=== PATIENT | female | born 1940 | race Caucasian/White ===

== ENCOUNTER 2022-04-25 07:57 | Inpatient (IN) | payer OTHER ==
--- OUTSIDE RECORDS SUMMARY | 2022-04-25 08:00 | XMS REPORT | Continuity of Care Document ---
:[address] [facility] t Address [address] [place] [address] Care Team Providers Name Role Phone Oswaldo Bettencourt MD. Primary Care Physician Oswaldo Bettencourt Attending Clinician Oswaldo Bettencourt Attending Clinician Payers Payer Name Policy Type Policy Number Effective Date Expiration Date S katarzyna [employer] MEDICARE [id number] 2018 2024 O 00:00:00 00:00:00 Problems Condition Condition Condition Status Onset Resolution Last Treating Co mments Source Name Details Category Date Date Treatment Clinician Date R91.1 - R91.1 - Diagnosis Active 2018-04-19 Memoria SOLITARY SOLITARY 03-23 14:22:00 l PULMONARY PULMONARY 00:01: Herm beth NODULE NODULE 00 Active 03/23/2018 JOEL Cohen N13.30 - N13.30 - Diagnosis Active 2017-12-26 Memoria UNSPECIFIE UNSPECIFIE 12-20 09:36:00 l D D 00:01: Noel HYDRONEPHR HYDRONEPHR 00 OSIS OSIS Active 12/20/2017 JOEL Barreto Allergies, Adverse Reactions, Alerts Allergy Allergy Status Severity Reaction(s) Onset Inactive Treating Comm ents Source Name Type Date Date Clinician Iodine Propensi Active Rash 2018-08 Methodi ty to 0-09 st adverse 00:00: Hospita reaction 00 l s to drug Penicill Propensi Active Rash 2018-08 Method i ins ty to 0-09 st adverse 00:00: Hospita reaction 00 l s to drug Vancomyc Propensi Active Rash 2018-08 Method i in ty to 0-09 st adverse 00:00: Hospita reaction 00 l s to drug penicill penicill Active Memori a in in l Moro contrast contrast Active Moderate Ruy johny media media l (iodine- (iodine- Tim n based) based) Social History Social Habit Start Date Stop Date Quantity Comments Source History [facility] History [facility] Drinks Tobacco use and 2019-06-05 2019-06-05 Smokeless tobacco [facility] exposure 00:00:00 00:00:00 non-user Hospital Alcohol intake 2019-06-05 2019-06-05 Lifetime [facility] 00:00:00 00:00:00 non-drinker Hospital (finding) History [facility] 2019-06-05 2019-06-05 1 [facility] Frequency 00:00:00 00:00:00 Hospita l Sex Ass[birth year] At [birth year] [facility] 00:00:00 00:00[facility]00 Hospital Smoking Status Start Date Stop Date Source Tobacco smoking consumption unknown [facility] Never smoked tobacco [facility] Medications Ordered Filled Start Stop Current Ordering Indication Dosage Frequency Signature Comments Components Source Medication Medication Date Date Medication? Clinician (SIG) Name Name lisinopril- Yes TAKE 2 Meth collette hydrochloro 9-[address] thiazide 00:00: MOUTH Hospita (PRINZIDE) 00 DAILY FOR l 20-12.5 mg HIGH BLOOD per tablet PRESSURE amLODIPine Yes 10mg QD Take 10 mg M ethodi (NORVASC) 8-[address] 10 mg 00:00: daily. Hospita tablet 00 l Procedures Procedure Date / Time Performed Performing Clinician Sourc e CHG DEXA,BONE DENSITY, 1 + SITE, 2021-05-27 17:36:12 [facility] Bettencourt [facility] CHG DEXA,BONE DENSITY, 1 + SITE, 2021-05-27 17:36:12 Vlad [facility]tencourt [facility] Encounters Start End Encounter Admission Attending Care Care Encounter Source Date/Time Date/Time Type Type Clinicians Facility Department ID 2021-12-21 Outpatient [facility] [id number] [place] 07:38:02 [id number] Health 2021-05-27 2021-05-27 EXT [facility] OP Sg, EXT MSRDP [id number] [place] 00:00:00 00:00:00 Oswaldo D LOCATION [id number] H ealth [id number] 2021-05-27 2021-05-27 EXT M[facility] OP Sg, EXT MSRDP [id number] [place] 00:00:00 00:00:00 Oswaldo D LOCATION [id number] H ealth [id number] 2018-01-10 2018-01-11 Outpt Diag nullFlavo [facility] [id number] Memoria 15:41:00 04:59:00 Services r Outpatient 04 l Moe dior [facility] 2018-01-10 2018-01-11 Outpt Diag nullFlavo [facility] [id number] Memoria 15:41:00 04:59:00 Services r Outpatient 04 l Imaging James Dumont barby [facility] 2018-01-10 2018-01-10 Outpatient Sg, MH35 MH35 [id number] 10:41:00 23:59:00 Oswaldo 04 Da-[facility] 2018-01-10 2018-01-10 Outpatient Sg, MH35 MH35 [id number] 10:41:00 23:59:00 Oswaldo 04 Da-Ye 2017-12-26 2017-12-27 Outpt Diag nullFlavo [facility] [id number] Memoria 14:27:00 04:59:00 Services r Outpatient 03 l Imaging James Dumont barby [facility] 2017-12-26 2017-12-27 Outpt Diag nullFlavo [facility] [id number] Memoria 14:27:00 04:59:00 Services r Outpatient 03 l Moe Dumont barby [facility] 2017-12-26 2017-12-26 Outpatient Sg, MH35 [id number] 09:27:00 23:59:00 Oswaldo 03 Da-Ye 2017-12-26 2017-12-26 Outpatient Sg, MH35 MH35 [id number] 09:27:00 23:59:00 Oswaldo 03 Da-Ye 2017-01-24 2017-01-25 Outpt Diag nullFlavo [facility] [id number] Memoria 19:23:00 04:59:00 Services r Outpatient 00 l Imaging - Tim n [facility] 2017-01-24 2017-01-25 Outpt Diag nullFlavo [facility] [id number] Memoria 19:23:00 04:59:00 Services r Outpatient 00 l Imaging - Tim n [facility] 2017-01-24 2017-01-25 Outpt Diag nullFlavo [facility] [id number] Memoria 15:52:00 04:59:00 Services r Outpatient 01 l Imaging - Tim n [facility] 2017-01-24 2017-01-25 Outpt Diag nullFlavo [facility] [id number] Memoria 15:52:00 04:59:00 Services r Outpatient 01 l Imaging - Tim n [facility] 2017-01-24 2017-01-24 Outpatient Sg, 35 [id number] 14:23:00 23:59:00 Oswaldo 00 Da-[facility] 2017-01-24 2017-01-24 Outpatient Sg, 35 35 [id number] 14:23:00 23:59:00 Oswaldo 00 Da-Ye 2017-01-24 2017-01-24 Outpatient Sg, [id number] 10:52:00 23:59:00 Oswaldo [id number] 01 Da-Yeh [id number] 2017-01-24 2017-01-24 Outpatient Sg, [id number]. [id number] 10:52:00 23:59:00 Oswaldo [id number] 01 Da-Yeh [id number] 5.90 Results This patient has no known results.
[2022-04-25 08:23] LABS: Absolute Lymphocytes (CBC) 0.7 K/uL (0.7-4.9); Hematocrit 41.4 % (36.0-45.0); Lymphocytes % 4.6 % (15.3-44.8); MCV 64.1 fL (80-100); MPV 8.6 fL (7.6-11.3); RBC Red Blood Cell Count 6.46 M/uL (3.86-4.86)
[2022-04-25] MEDS ORDERED: NA CHLORIDE 0.9% 500 ML ONE ×2 (08:23→09:55)
[2022-04-25] MEDS ORDERED: MORPHINE 4 MG/ML SYR ONE (08:23)
[2022-04-25] MEDS ORDERED: ONDANSETRON 4 MG/2 ML VIAL ONE (08:23)
[2022-04-25 08:51] LABS: Protime INR 1.07
[2022-04-25 09:01] LABS: Platelet Estimate ADEQ; Potassium 2.6 mmol/L (3.5-5.1); White Blood Cell Scan OK (OK)
[2022-04-25 09:02] LABS: Anisocytosis 1+; Blood Morphology Comment NOTED (NOT SEEN); Hypochromasia 1+
--- NOTE | 2022-04-25 09:22 | RAD REPORT ---
EXAM DESCRIPTION: CT - Head C Spine Cap Lucie Con - 04/25/2022 9:12 am CLINICAL HISTORY: Trauma, head and neck injury. Chest, abdomen and pelvis pain. fall in bathtub, pain all over, head injury COMPARISON: No comparisons TECHNIQUE: CT head without contrast. CT cervical spine without contrast with coronal and sagittal reformatted images. CT chest, abdomen and pelvis with coronal and sagittal reformatted images of the spine. All CT scans are performed using dose optimization technique as appropriate and may include automated exposure control or mA/KV adjustment according to patient size. FINDINGS: CT HEAD WITHOUT CONTRAST: No intracranial hemorrhage, hydrocephalus or extra-axial fluid collection. No acute large vascular te rritory infarct. 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 Right frontotem poral encephalomalacia. The paranasal sinuses and mastoids are clear. The calvarium is intact. CT CERVICAL SPINE WITHOUT CONTRAST: No fracture or subluxation. The prevertebral soft tissues are normal in thickness.Mild levoconvex curvature of the cervical spine . Minimal cervical spondylosis. CT CHEST, ABDOMEN, PELVIS: Thorax: Chest Wall: No abnormal mass Lungs: No acute abnormality. Pleura: No effusions or pneumothorax. Margie/Mediastinum: No lymphadenopathy. Small hiatal hernia. Aorta/Pulmonary Arteries: Unremarkable Heart: Normal size. Abdomen/Pelvis: Liver: No acute abnormality or suspicious lesions. Biliary: Cholecystectomy. Stomach: No significant focal abnormality. Duodenum: No significant focal abnormality. Pancreas: No significant abnormality. Spleen: No significant abnormality. Adrenal: No suspicious lesions. 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 No renal calculi. Retroperitoneum: No retroperitoneal adenopathy. Vascular: No aneurysm. Bowel: Moderate rectal stool burden. Perirectal edema noted.. Normal appendix. Peritoneum: No ascites or free air. Bladder: Grossly unremarkable. Reproductive: No adnexal masses. Bones: No acute fracture. Other: n/a IMPRESSION: 1. Negative for acute traumatic findings. 2. Moderate rectal stool burden with wall thickening and perirectal edema that may represent fecal im paction with stercoral colitis.
--- NOTE | 2022-04-25 09:44 | RAD REPORT ---
EXAM DESCRIPTION: RAD - Knee Right 3 View - 04/25/2022 9:37 am CLINICAL HISTORY: PAIN COMPARISON: No comparisons FINDINGS/IMPRESSION: No acute fracture. No malalignment. Mild patellofemoral compartment spurring.
--- NOTE | 2022-04-25 09:46 | RAD REPORT ---
EXAM DESCRIPTION: RAD - Femur Right - 04/25/2022 9:36 am CLINICAL HISTORY: PAIN COMPARISON: No comparisons FINDINGS/IMPRESSION: No acute fracture. No malalignment. Mild right acetabular degenerative changes.
--- NOTE | 2022-04-25 09:46 | RAD REPORT ---
EXAM DESCRIPTION: RAD - Humerus Right - 04/25/2022 9:36 am CLINICAL HISTORY: PAIN COMPARISON: No comparisons FINDINGS/IMPRESSION: No acute fracture. No malalignment. Glenohumeral joint degenerative changes. Mi ld right AC joint degenerative changes and subacromial spurring. Ossific density adjacent to the grea ter tuberosity may reflect calcific tendinitis.
--- NOTE | 2022-04-25 09:46 | RAD REPORT ---
EXAM DESCRIPTION: RAD - Shoulder Left 2 View - 04/25/2022 9:36 am CLINICAL HISTORY: PAIN COMPARISON: No comparisons FINDINGS/IMPRESSION: No acute fracture. No malalignment. Left glenohumeral and AC joint degenerative changes.
[2022-04-25] MEDS ORDERED: KCL 20 MEQ/100 mL IVPB 100 ML IV ONE (09:55)
--- NOTE | 2022-04-25 10:00 | ER ---
Nurse's Notes [facility] Name: Mariposa Devine Age: 81 yrs Sex: Female : 1940 Arrival Date: 04/25/2022 Time: 07:58 Bed 8 Private MD: Diagnosis: Fecal impaction-With stercoral colitis;Rhabdomyolysis;Muscle weakness (generalized);Hypokalemia Presentation: 04/25 08:03 Chief complaint: EMS states: Fell in bathtub last night at 2100, found by daughter this jl7 morning, bruising to right upper arm, right hip, bilateral knees, left posterior ribs, did not hit head, denies pain to back. Pt reports pressure to rectum. Care prior to arrival: Medication(s) given: Normal saline infusion, 200 mL IV initiated. 20 GA, in the right antecubital area. Mechanism of Injury: Fall from standing position. Trauma event details: Injury occurred in the [facility], Injury occurred: at home. Injury occurred: April 24, 2022 Injury occurred at: 21:00. 08:03 Acuity: ARIELA 2 jl7 08:03 Method Of Arrival: EMS: [facility] jl7 08:09 Coronavirus screen: Vaccine status: Patient reports receiving the 2nd dose of the covid jl7 vaccine. At this time, the client does not indicate any symptoms associated with coronavirus-19. Ebola Screen: No symptoms or risks identified at this time. Initial Sepsis Screen: Does the patient meet any 2 criteria? No. Patient's initial sepsis screen is negative. Does the patient have a suspected source of infection? No. Patient's initial sepsis screen is negative. Risk Assessment: Do you want to hurt yourself or someone else? Patient reports no desire to harm self or others. Onset of symptoms was April 24, 2022 at 21:00. Trauma Activation: Alert Physician: ED Physician; Name: Nicky; Notified At: 08:04; Arrived At: 08:04 Physician: General Surgeon; Name: ; Notified At: 08:04; Arrived At: Physician: Radiology; Name: Nia; Notified At: 08:04; Arrived At: 08:06 Physician: Respiratory; Name: ; Notified At: 08:04; Arrived At: Physician: Lab; Name: ; Notified At: 08:04; Arrived At: Historical: - Allergies: 08:10 PENICILLINS; jl7 08:10 Vancomycin; jl7 - Home Meds: 08:10 Lisinopril Oral [Active]; lovastatin 10 mg Oral tab [Active]; jl7 - PMHx: 08:10 Hypertensive disorder; Hypercholesterolemia; jl7 - Immunization history:: Client reports receiving the 2nd dose of the Covid vaccine. - Social history:: Smoking status: Patient denies any tobacco usage or history of. - Immunization history: Last tetanus immunization: unknown. - Family history:: not pertinent. - Hospitalizations: : No recent hospitalization is reported. Screenin:03 Abuse screen: Denies threats or abuse. Denies injuries from another. Tuberculosis jl7 screening: No symptoms or risk factors identified. 11:00 Nutritional screening: No deficits noted. Fall Risk IV access (20 points). Total Delaney jl7 Fall Scale indicates No Risk (0-24 pts). Primary Survey: 08:03 NO uncontrolled hemorrhage observed. A: The client is alert. Airway: patent. jl7 Breathing/Chest: Respiratory effort: spontaneous, unlabored, Respiratory pattern: regular, Chest inspection: symmetrical rise and fall of the chest. Circulation: Hemorrhage: No external hemorrhage noted. Pulses: palpable right radial artery and left radial artery. Skin color: pink, Skin temperature: warm. Disability Client is alert. Exposure/Environment: All clothing and personal items were removed. Forensic evidence collection is not deemed to be indicated at this time. Items placed in patient belonging bag. There is no evidence of uncontrolled external bleeding. Obvious injury(ies) are noted at this time: bruising to Right upper arm and hip, bilateral knees, and left posterior ribs. 08:30 Reassessment Alertness and Airway: Awake and alert. The airway is patent. Breathing: jl7 Spontaneous respiratory effort, equal unlabored respirations, breath sounds clear bilaterally, regular pattern with symmetrical chest rise and fall. Circulation: No external hemorrhage noted. Regular and strong central pulse, skin warm/dry/normal color. Disability: Alert. Assessment: 08:00 General: Appears in no apparent distress. uncomfortable, Behavior is calm, cooperative, jl7 appropriate for age. Pain: Complains of pain in left mid back and right mid back Pain currently is 10 out of 10 on a pain scale. Neuro: Level of Consciousness is awake, alert, obeys commands, Oriented to person, place, time, situation. Cardiovascular: Patient's skin is warm and dry. Respiratory: Airway is patent Respiratory effort is even, unlabored, Respiratory pattern is regular, symmetrical. Derm: Skin is pink, warm \T\ dry. Bruising that is bright red, dark purple, on left flank, right arm and right hip, bilateral knees. Musculoskeletal: Range of motion: intact in all extremities. 09:00 Reassessment: Patient appears in no apparent distress at this time. Patient and/or jl7 family updated on plan of care and expected duration. Pain level reassessed. Patient is alert, oriented x 3, equal unlabored respirations, skin warm/dry/pink. Patient states feeling better. 10:00 Reassessment: Patient appears in no apparent distress at this time. No changes from 7 previously documented assessment. Patient and/or family updated on plan of care and expected duration. Pain level reassessed. Patient is alert, oriented x 3, equal unlabored respirations, skin warm/dry/pink. 11:00 Reassessment: Patient appears in no apparent distress at this time. No changes from 7 previously documented assessment. Patient and/or family updated on plan of care and expected duration. Pain level reassessed. Patient is alert, oriented x 3, equal unlabored respirations, skin warm/dry/pink. 18:00 Reassessment: Angela, daughter, [phone]. [phone] Vital Signs: 08:03 BP 133 / 83; Pulse 89; Resp 20; Temp 97.5; Pulse Ox 99% on R/A; Weight 63.5 kg; Height jl7 5 ft. 2 in. (157.48 cm); Pain 1010; 08:45 BP 133 / 74; Pulse 103; Resp 15; Pulse Ox 98% ; jl7 09:30 BP 130 / 71; Pulse 76; Resp 15; Pulse Ox 96% ; jl7 10:15 BP 131 / 84; Pulse 86; Resp 15; Pulse Ox 98% ; jl7 11:00 BP 134 / 85; Pulse 86; Resp 15; Pulse Ox 98% ; jl7 11:30 BP 124 / 73; Pulse 83; Resp 18; Pulse Ox 98% ; jl7 12:15 BP 121 / 69; Pulse 80; Resp 15; Pulse Ox 97% ; jl7 13:00 BP 122 / 79; Pulse 89; Resp 14; Pulse Ox 98% ; jl7 13:45 BP 120 / 77; Pulse 82; Resp 15; Pulse Ox 98% ; jl7 08:03 Body Mass Index 25.61 (63.50 kg, 157.48 cm) jl7 Rose Coma Score: 08:03 Eye Response: spontaneous(4). Verbal Response: oriented(5). Motor Response: obeys jl7 commands(6). Total: 15. 08:45 Eye Response: spontaneous(4). Verbal Response: oriented(5). Motor Response: obeys jl7 commands(6). Total: 15. 09:30 Eye Response: spontaneous(4). Verbal Response: oriented(5). Motor Response: obeys jl7 commands(6). Total: 15. 10:15 Eye Response: spontaneous(4). Verbal Response: oriented(5). Motor Response: obeys jl7 commands(6). Total: 15. 11:00 Eye Response: spontaneous(4). Verbal Response: oriented(5). Motor Response: obeys jl7 commands(6). Total: 15. 11:30 Eye Response: spontaneous(4). Verbal Response: oriented(5). Motor Response: obeys jl7 commands(6). Total: 15. 12:15 Eye Response: spontaneous(4). Verbal Response: oriented(5). Motor Response: obeys jl7 commands(6). Total: 15. 13:00 Eye Response: spontaneous(4). Verbal Response: oriented(5). Motor Response: obeys jl7 commands(6). Total: 15. 13:45 Eye Response: spontaneous(4). Verbal Response: oriented(5). Motor Response: obeys jl7 commands(6). Total: 15. Trauma Score (Adult): 08:03 Eye Response: spontaneous(1); Verbal Response: oriented(1); Motor Response: obeys jl7 commands(2); Systolic BP: > 89 mm Hg(4); Respiratory Rate: 10 to 29 per min(4); Rose Score: 15; Trauma Score: 12 ED Course: 07:58 Patient arrived in ED. rn 07:58 Hunter Saunders MD is Attending Physician. rn 08:03 Kadeem Oneal, RN is Primary Nurse. jl7 08:03 Patient has correct armband on for positive identification. Placed in gown. Bed in low jl7 position. Call light in reach. Side rails up X2. 08:03 Patient maintains SpO2 saturation greater than 95% on room air. Thermoregulation: warm jl7 blanket given to patient. 08:07 Triage completed. jl7 08:10 Arm band placed on right wrist. jl7 08:15 Basic Metabolic Panel Sent. kc6 08:15 CBC with Diff Sent. kc6 08:15 Ptt, Activated Sent. kc6 08:15 Protime (+inr) Sent. kc6 08:15 CK Sent. kc6 08:15 Maintain EMS IV. Dressing intact. Good blood return noted. Site clean \T\ dry. Gauge \T\ jl 7 site: 20 Right AC. 08:16 EKG done, by ED staff, reviewed by Hunter Saunders MD. mb7 08:20 Door closed. Noise minimized. Warm blanket given. Client placed on continuous cardiac mb7 and pulse oximetry monitoring. NIBP monitoring applied. laboratory monitor on. 09:14 Head C Spine Cap Wo Con In Process Unspecified. EDMS 09:37 XRAY Humerus RIGHT In Process Unspecified. EDMS 09:37 XRAY Shoulder LEFT 2 view In Process Unspecified. EDMS 09:37 XRAY Femur RIGHT In Process Unspecified. EDMS 09:37 XRAY Knee RIGHT 3 view In Process Unspecified. EDMS 09:37 XRAY Knee LEFT 3 view In Process Unspecified. EDMS 09:59 Parker Tijerina MD is Hospitalizing Provider. rn 10:15 Inserted saline lock: 22 gauge in left hand, using aseptic technique. jl7 10:20 Chan cath inserted, using sterile technique, 16 Fr., by wi, balloon inflated, to jl7 gravity drainage, urine specimen collected. returned cloudy urine. Patient tolerated well. 10:20 No provider procedures requiring assistance completed. jl7 10:32 Patient admitted, IV remains in place. intact, No redness/swelling at site. jl7 19:11 Primary Nurse role handed off by Kadeem Oneal, RN mw2 Administered Medications: 08:20 Drug: NS 0.9% 500 ml Route: IV; Rate: bolus; Site: right antecubital; jl7 09:20 Follow up: Response: No adverse reaction; IV Status: Completed infusion; IV Intake: jl7 500ml 08:21 Drug: Zofran (Ondansetron) 4 mg Route: IVP; Site: right antecubital; jl7 08:50 Follow up: Response: No adverse reaction jl7 08:23 Drug: morphine 4 mg Route: IVP; Infused Over: 4 mins; Site: right antecubital; jl7 08:50 Follow up: Response: No adverse reaction; Pain is decreased jl7 10:30 Drug: Potassium Chloride 20 mEq Route: IV; Rate: calculated rate; Site: left hand; jl7 12:30 Follow up: Response: No adverse reaction; IV Status: Completed infusion jl7 10:30 Drug: Fleet Enema (sodium phosphate) 133 ml Route: WA; jl7 19:16 Follow up: Response: No adverse reaction jl7 10:30 Drug: NS 0.9% 500 ml Route: IV; Rate: bolus; Site: left hand; jl7 12:00 Follow up: Response: No adverse reaction; IV Status: Completed infusion; IV Intake: jl7 500ml Medication: 11:00 VIS not applicable for this client. jl7 Intake: 09:20 IV: 500ml; Total: 500ml. jl7 12:00 IV: 500ml; Total: 1000ml. jl7 14:00 PO: 50ml (Water); IV: 1000ml (IV Fluid); Total: 2050ml. jl7 Output: 14:00 Urine: 1000ml; Total: 1000ml. jl7 Outcome: 09:59 Decision to Hospitalize by Provider. rn 14:00 Admitted to ER Hold. Please see [facility] for further documentation. jl7 14:00 Condition: stable 14:00 Discharge instructions given to patient, family, Instructed on the need for admit, Demonstrated understanding of instructions. 14:00 Patient's length of stay was not longer than 2 hours. jl7 21:11 Patient left the ED. ella Signatures: Dispatcher [employer] EDMS Nica Stock RN RN kl Nieto, Roman, MD MD rn Leal, Jahala, RN RN jl7 Quirino Sutton 2 Alka Don 7 Ibeth Driscoll kc6 Corrections: (The following items were deleted from the chart) 10:32 08:15 Inserted saline lock: 20 gauge in right antecubital area, using aseptic jl7 technique. Blood collected. [facility] 11: 11: General: Appears in no apparent distress. uncomfortable, Behavior is calm, jl7 cooperative, appropriate for age, [facility] 11: 11:01 Pain: Complains of pain in left mid back and right mid back Pain currently is 10 jl7 out of 10 on a pain scale. [facility] : 11: Neuro: Level of Consciousness is awake, alert, obeys commands, Oriented to [facility] person, place, time, situation, [facility] 11: Cardiovascular: Patient's skin is warm and dry. [place] [id number] : 11:01 Respiratory: Airway is patent Respiratory effort is even, unlabored, Respiratory [facility] pattern is regular, symmetrical, [facility] : 11: Derm: Skin is pink, warm \T\ dry. Bruising that is bright red, dark purple, on left jl7 flank, right arm and right hip, bilateral knees [facility] 11: 11:01 Musculoskeletal: Range of motion: intact in all extremities, [facility] jl7
--- NOTE | 2022-04-25 10:00 | EDPHYS ---
Physician Documentation [facility] Name: Mariposa Devine Age: 81 yrs Sex: Female : 1940 Arrival Date: 04/25/2022 Time: 07:58 Bed 8 Private MD: ED Physician Hunter Saunders HPI: 04/25 08:32 This 81 yrs old Female presents to ER via EMS with complaints of Fall Injury. rn 08:32 Details of fall: The patient fell from an upright position. Onset: The symptoms/episode rn began/occurred last night. Associated injuries: The patient sustained injury to the head, upper back injury. Severity of symptoms: At their worst the symptoms were moderate, in the emergency department the symptoms are unchanged. The patient has not experienced similar symptoms in the past. The patient has not recently seen a physician. Pt reports fell in shower last night, found this AM, unable to get up on her own after fall. Reports left head pain, right arm pain, left shoulder pain, mid back pain, pain to both knees. EMS found her in "weird position", with extremities bent and noted mild cyanosis to lower extremities that improved after proper positioning. Pt denies recent illness. . Historical: - Allergies: 08:10 PENICILLINS; jl7 08:10 Vancomycin; jl7 - Home Meds: 08:10 Lisinopril Oral [Active]; lovastatin 10 mg Oral tab [Active]; jl7 - PMHx: 08:10 Hypertensive disorder; Hypercholesterolemia; jl7 - Immunization history:: Client reports receiving the 2nd dose of the Covid vaccine. - Social history:: Smoking status: Patient denies any tobacco usage or history of. - Immunization history: Last tetanus immunization: unknown. - Family history:: not pertinent. - Hospitalizations: : No recent hospitalization is reported. ROS: 08:32 Constitutional: Negative for fever, chills, and weight loss, Eyes: Negative for injury, rn pain, redness, and discharge, Neck: Negative for injury, pain, and swelling, Cardiovascular: Negative for chest pain, palpitations, and edema, Respiratory: Negative for shortness of breath, cough, wheezing, and pleuritic chest pain, Abdomen/GI: Negative for abdominal pain, nausea, vomiting, diarrhea, and constipation, Back: + back pain MS/Extremity: + pain to right arm, left shoulder, both knees Skin: Negative for injury, rash, and discoloration, Neuro: Negative for headache, numbness, tingling, and seizure. Exam: 08:26 ECG was reviewed by the Attending Physician. rn 08:32 Constitutional: This is a well developed, well nourished patient who is awake, alert, rn and in no acute distress. Head/Face: Normocephalic, atraumatic. Eyes: Periorbital areas with no swelling, redness, or edema. ENT: dry MM, no oral trauma noted Neck: Trachea midline, no midline tenderness. No Meningismus. Chest/axilla: Normal chest wall appearance and motion. Nontender with no deformity. Cardiovascular: Regular rate and rhythm. No pulse deficits. Respiratory: No increased work of breathing, no retractions or nasal flaring. Abdomen/GI: Soft, non-tender Back: + contusino and ecchymosis mid back Skin: Warm, dry MS/ Extremity: Pulses equal, no cyanosis. Painful ROM RLE at knee and resists active ROM on that leg. + contusion and ecchymosis right proximal humerus. + mild contusion and painful ROM left shoulder. Neuro: Awake and alert, GCS 15, slow to respond, 3+/5 strength throughout with tremors but equal. Sensation grossly intact. Vital Signs: 08:03 BP 133 / 83; Pulse 89; Resp 20; Temp 97.5; Pulse Ox 99% on R/A; Weight 63.5 kg; Height jl7 5 ft. 2 in. (157.48 cm); Pain 10/10; 08:45 BP 133 / 74; Pulse 103; Resp 15; Pulse Ox 98% ; jl7 09:30 BP 130 / 71; Pulse 76; Resp 15; Pulse Ox 96% ; jl7 10:15 BP 131 / 84; Pulse 86; Resp 15; Pulse Ox 98% ; jl7 11:00 BP 134 / 85; Pulse 86; Resp 15; Pulse Ox 98% ; jl7 11:30 BP 124 / 73; Pulse 83; Resp 18; Pulse Ox 98% ; jl7 12:15 BP 121 / 69; Pulse 80; Resp 15; Pulse Ox 97% ; jl7 13:00 BP 122 / 79; Pulse 89; Resp 14; Pulse Ox 98% ; jl7 13:45 BP 120 / 77; Pulse 82; Resp 15; Pulse Ox 98% ; jl7 08:03 Body Mass Index 25.61 (63.50 kg, 157.48 cm) jl7 Rose Coma Score: 08:03 Eye Response: spontaneous(4). Verbal Response: oriented(5). Motor Response: obeys jl7 commands(6). Total: 15. 08:45 Eye Response: spontaneous(4). Verbal Response: oriented(5). Motor Response: obeys jl7 commands(6). Total: 15. 09:30 Eye Response: spontaneous(4). Verbal Response: oriented(5). Motor Response: obeys jl7 commands(6). Total: 15. 10:15 Eye Response: spontaneous(4). Verbal Response: oriented(5). Motor Response: obeys jl7 commands(6). Total: 15. 11:00 Eye Response: spontaneous(4). Verbal Response: oriented(5). Motor Response: obeys jl7 commands(6). Total: 15. 11:30 Eye Response: spontaneous(4). Verbal Response: oriented(5). Motor Response: obeys jl7 commands(6). Total: 15. 12:15 Eye Response: spontaneous(4). Verbal Response: oriented(5). Motor Response: obeys jl7 commands(6). Total: 15. 13:00 Eye Response: spontaneous(4). Verbal Response: oriented(5). Motor Response: obeys jl7 commands(6). Total: 15. 13:45 Eye Response: spontaneous(4). Verbal Response: oriented(5). Motor Response: obeys jl7 commands(6). Total: 15. Trauma Score (Adult): 08:03 Eye Response: spontaneous(1); Verbal Response: oriented(1); Motor Response: obeys jl7 commands(2); Systolic BP: > 89 mm Hg(4); Respiratory Rate: 10 to 29 per min(4); Rose Score: 15; Trauma Score: 12 MDM: 07:58 Patient medically screened. rn 09:58 Differential diagnosis: abrasion, closed head injury, contusion, fracture, sprain, rn strain, rhabdomyolysis, dehydration, constipation, impaction. Data reviewed: vital signs, nurses notes, lab test result(s), radiologic studies, CT scan, plain films, and as a result, I will admit patient. Counseling: I had a detailed discussion with the patient and/or guardian regarding: the historical points, exam findings, and any diagnostic results supporting the discharge/admit diagnosis, lab results, radiology results, the need for further work-up and treatment in the hospital. Response to treatment: the patient's symptoms have mildly improved after treatment, and as a result, I will admit patient. Admission orders: after a detailed discussion of the patient's condition and case, the admit orders are written by me. 04/25 08:00 Order name: Urine Microscopic Only; Complete Time: 19:59 rn 04/25 08:00 Order name: CBC with Diff; Complete Time: : rn 04/25 08:00 Order name: Basic Metabolic Panel; Complete Time: 09:05 04/25 08:00 Order name: Protime (+inr); Complete Time: 08:53 04/25 08:00 Order name: Ptt, Activated; Complete Time: 08:53 04/25 08:00 Order name: CK; Complete Time: 09:05 rn 04/25 09:02 Order name: CBC Smear Scan; Complete Time: 09:05 EDIL 04/25 09:20 Order name: SARS RAPID; Complete Time: 19:59 rn 04/25 10:35 Order name: Urine Dipstick-Ancillary; Complete Time: 19:59 EDIL 04/25 10:58 Order name: Urine Culture EDIL 04/25 11:02 Order name: Magnesium; Complete Time: 19:59 EDIL 04/25 11:02 Order name: Phosphorus; Complete Time: 19:59 EDIL 04/25 11:02 Order name: T4 Free; Complete Time: 19:59 EDIL 04/25 11:02 Order name: Thyroid Stimulating Hormone; Complete Time: 19:59 EDIL 04/25 08:00 Order name: XRAY Humerus RIGHT; Complete Time: 09:48 rn 04/25 08:00 Order name: XRAY Shoulder LEFT 2 view; Complete Time: 09:48 rn 04/25 08:00 Order name: XRAY Femur RIGHT; Complete Time: 09:48 rn 04/25 08:00 Order name: XRAY Knee RIGHT 3 view; Complete Time: 09:48 rn 04/25 08:00 Order name: XRAY Knee LEFT 3 view; Complete Time: 09:48 rn 04/25 09:06 Order name: Head C Spine Cap Wo Con; Complete Time: 09:48 EDMS 04/25 11:02 Order name: Urinalysis EDMS 04/25 11:03 Order name: Basic Metabolic Panel EDMS 04/25 11:03 Order name: Basic Metabolic Panel EDMS 04/25 11:03 Order name: CBC with Automated Diff EDMS 04/25 11:03 Order name: CBC with Automated Diff EDMS 04/25 11:04 Order name: Blood Culture EDMS 04/25 13:24 Order name: Basic Metabolic Panel; Complete Time: 19:59 EDMS 04/25 08:00 Order name: IV Start; Complete Time: 08:15 rn 04/25 08:00 Order name: Urine Dipstick-Ancillary (obtain specimen); Complete Time: 10:53 rn 04/25 08:00 Order name: EKG; Complete Time: 08:01 rn 04/25 08:00 Order name: EKG - Nurse/Tech; Complete Time: 08:15 rn 04/25 10:31 Order name: Chan; Complete Time: 10:31 [facility] 04/25 11:02 Order name: Heart Healthy EDIL 04/25 11:03 Order name: Patient Safety Orders EDIL EC:26 Rate is 85 beats/min. Rhythm is regular. Left axis deviation noted. QRS is positive in rn lead I and negative in lead aVF. UT interval is normal. QRS interval is normal. QT interval is normal. No Q waves. T waves are Normal. No ST changes noted. Clinical impression: NSR w/ Non-specific ST/T Changes. Interpreted by me. Reviewed by me. Administered Medications: 08:20 Drug: NS 0.9% 500 ml Route: IV; Rate: bolus; Site: right antecubital; jl7 09:20 Follow up: Response: No adverse reaction; IV Status: Completed infusion; IV Intake: jl7 500ml 08:21 Drug: Zofran (Ondansetron) 4 mg Route: IVP; Site: right antecubital; jl7 08:50 Follow up: Response: No adverse reaction jl7 08:23 Drug: morphine 4 mg Route: IVP; Infused Over: 4 mins; Site: right antecubital; jl7 08:50 Follow up: Response: No adverse reaction; Pain is decreased jl7 10:30 Drug: Potassium Chloride 20 mEq Route: IV; Rate: calculated rate; Site: left hand; jl7 12:30 Follow up: Response: No adverse reaction; IV Status: Completed infusion 7 10:30 Drug: Fleet Enema (sodium phosphate) 133 ml Route: UT; jl7 19:16 Follow up: Response: No adverse reaction 7 10:30 Drug: NS 0.9% 500 ml Route: IV; Rate: bolus; Site: left hand; jl7 12:00 Follow up: Response: No adverse reaction; IV Status: Completed infusion; IV Intake: jl7 500ml Disposition Summary: 04/25/22 09:59 Hospitalization Ordered Hospitalization Status: Observation rn Provider: Parker Tijerina rn Condition: Stable rn Problem: new rn Symptoms: have improved rn Bed/Room Type: Standard rn Location: Intensive Care Unit(04/25/22 19:04) mw Room Assignment: 6-(04/25/22 20:15) mw Diagnosis - Fecal impaction - With stercoral colitis rn - Rhabdomyolysis rn - Muscle weakness (generalized) rn - Hypokalemia rn Forms: - Medication Reconciliation Form rn - SBAR form rn Signatures: Dispatcher [employer] EDMS Elizabeth Escobedo RN RN Kaiden Pagan MD MD cha Nieto, Roman, MD MD rn Leal, Jahala, RN RN jl7 Corrections: (The following items were deleted from the chart) 09:06 08:00 Head C Spine CAP W Con+CT.RAD.BRZ ordered. EDIL EDIL 15:58 09:59 Telemetry/MedSurg (observation) asuncion herrera 15:58 09:59 asuncion herrera 19:04 15:58 BR ER HOLD jlNilesh mw 19:04 15:58 ERHOLD- jlNilesh mw 20:15 19:04 5- mw mw
[2022-04-25 10:04] LABS: SARS-CoV-2 Antigen Rapid Res Negative (Negative)
[2022-04-25] MEDS ORDERED: FLEET ENEMA ADULT PR ONE (10:10)
[2022-04-25 10:35] LABS: Urine Blood 3+ (Negative); Urine Glucose Negative (Negative); Urine Protein 2+ (Negative); Urine Specific Gravity >=1.030 (1.005-1.030); Urine pH 5.5 (5.0-7.0)
[2022-04-25] MEDS ORDERED: HYDROCODONE/APAP 5/325 MG TAB PO PRN (10:44)
[2022-04-25 10:54] LABS: Calcium Oxalate Crystals- Ur Many /HPF (None Seen); Urine Bacteria 20-50 /HPF (<20); Urine RBC None Seen /HPF (None Seen)
[2022-04-25] MEDS ORDERED: ONDANSETRON 4 MG/2 ML VIAL IV PRN (10:57)
[2022-04-25] MEDS: ASPIRIN EC 81 MG TAB PO SCH (11:00)
[2022-04-25] MEDS ORDERED: POLYETHYL GLY 3350 17 GM/DOSE PO PRN (11:26)
[2022-04-25] MEDS ORDERED: LABETALOL 20 MG/4ML SYRINGE IV PRN (11:55)
--- NOTE | 2022-04-25 11:55 | P.HP ---
Certification for Inpatient Patient admitted to: Observation With expected LOS: <2 Midnights Patient will require the following post-hospital care: None Practitioner: I am a practitioner with admitting privileges, knowledge of patient current condition, hospital course, and medical plan of care. Services: Services provided to patient in accordance with Admission requirements found in Title 42 Section 412.3 of the Code of Federal Regulations <Amaya Blackman - Last Filed: 04/25/22 11:49> Patient History Date of Service: 04/25/22 Reason for admission: Fall History of Present Illness: Patient is an 81-year-old female with a past medical history significant for hypertension, hyperlipidemia who presents with complaint of fall. Patient reported that she showered yesterday and as she was about to step out of the shower stool she fell and could not get up. Patient reported falling at around 9 PM yesterday and was on the ground for roughly 12 hours until she was discovered by her family this morning. Patient reports associated signs and symptoms of weakness, fatigue, generalized body pains and low back pain. Patient rated pain as 9/10 in severity and described pain as aching in quality. Patient with bruising to bilateral knee left posterior rib and right hip. Patient denies hitting her head or losing consciousness. Patient denies any other signs and symptoms. Symptoms are aggravated or relieved by nothing. Family decided to bring patient to the hospital for medical evaluation Home medications list reviewed: No - Past Medical/Surgical History -: HTN -: HLD Past Surgical History: Reviewed- Non-Contributory - Family History Family History: Reviewed- Non-Contributory - Social History Smoking Status: Never smoker Alcohol use: No CD- Drugs: No Caffeine use: No Place of Residence: Home <HiralAmaya Harding - Last Filed: 04/25/22 11:49> Date of Service: 04/25/22 <Parker Tijerina - Last Filed: 04/25/22 19:33> Allergies Penicillins Allergy (Verified 04/25/22 11:22) UNK vancomycin Allergy (Verified 04/25/22 11:22) UNK Review of Systems General: Weakness, Other (fatigue, generalized body pains) Eyes: Unremarkable ENT: Unremarkable Respiratory: Unremarkable Cardiovascular: Unremarkable Gastrointestinal: Constipation Genitourinary: Unremarkable Musculoskeletal: Back Pain Integumentary: Bruising Neurological: Weakness Lymphatics: Unremarkable <Amaya Blackman - Last Filed: 04/25/22 11:49> Physical Examination - Physical Exam General: Oriented x3, Cooperative HEENT: Atraumatic, Normocephalic, PERRLA Neck: Supple, 2+ carotid pulse no bruit, JVD not distended Respiratory: Clear to auscultation bilaterally, Normal air movement Cardiovascular: No edema, Normal pulses, Regular rate/rhythm Capillary refill: <2 Seconds Gastrointestinal: Normal bowel sounds, Soft and benign Musculoskeletal: No clubbing, No swelling, No contractures, Erythema Integumentary: No rashes, No breakdown, No significant lesion Neurological: Normal speech, Normal tone Lymphatics: No axilla or inguinal lymphadenopathy - Studies Laboratory Data (last 24 hrs) 04/25/22 08:11: PT 12.7, INR 1.07, APTT 27.0 04/25/22 08:11: Sodium 131 L, Potassium 2.6 L*, BUN 17, Creatinine 0.78, Glucose 160 H 04/25/22 08:11: WBC 15.50 H, Hgb 13.4, Hct 41.4, Plt Count 233 <Amaya Blackman Meaghan - Last Filed: 04/25/22 11:49> - Studies Laboratory Data (last 24 hrs) 04/25/22 08:11: PT 12.7, INR 1.07, APTT 27.0 04/25/22 08:11: Sodium 131 L, Potassium 2.6 L*, BUN 17, Creatinine 0.78, Glucose 160 H 04/25/22 08:11: WBC 15.50 H, Hgb 13.4, Hct 41.4, Plt Count 233 <Parker Tijerina - Last Filed: 04/25/22 19:33> Assessment and Plan - Plan --Fecal impaction with stercoral colitis. Noted on imaging. Patient placed on laxatives. Continue supportive care. -- Rhabdomyolysis. Continue IV hydration. Will Reassess CPK in a.m. --Leukocytosis. Blood cultures pending. Will reassess levels in a.m. ---UTI.POA. Patient placed on antibiotics. Urine cultures pending. --Acute pain. We will manage pain with current pain medication regimen. --Hypokalemia. Replete as needed. --Hypertension. Stable. We will manage BP with labetalol as needed. --Hyperlipidemia. Continue statin. --CKD 2.. Baseline functions unknown. We will continue to monitor renal functions. --DVT prophylaxis with heparin subQ Discharge Plan: Home Plan to discharge in: 48 Hours - Advance Directives Does patient have a Living Will: No Does patient have a Durable POA for Healthcare: No - Code Status/Comfort Care Code Status Assessed: Yes Code Status: Full Code Physician Review: Patient Assessed, Agree with Above Assessment and Plan Critical Care: No <Amaya Blackman - Last Filed: 04/25/22 11:49> Physician Review: Patient Assessed, Agree with Above Assessment and Plan <Parker Tijerina - Last Filed: 04/25/22 19:33>
[2022-04-25] MEDS: CEFTRIAXONE 1,000 MG in NA CHLORIDE 0.9% 50 ML IVPB SCH (12:00)
[2022-04-25] MEDS: NA CHLORIDE 0.9% 1,000 ML IV SCH ×2 (12:00→21:35)
[2022-04-25] MEDS ORDERED: ASPIRIN EC 81 MG TAB PO ONE (12:40)
[2022-04-25] MEDS ORDERED: NA CHLORIDE 0.9% 1,000 ML ONE (12:40)
[2022-04-25] MEDS ORDERED: CEFTRIAXONE 1000 MG/VIAL ONE (12:40)
[2022-04-25] MEDS ORDERED: NA CHLORIDE 0.9% 50 ML ONE (12:41)
[2022-04-25 13:23] LABS: Potassium 2.8 mmol/L (3.5-5.1)
[2022-04-25 13:32] LABS: Phosphorus 2.7 mg/dL (2.5-4.9); Thyroid Stimulating Hormone 1.53 uIU/mL (0.360-3.740)
[2022-04-25] MEDS: HEPARIN 5000 UNIT/ML 1 ML VIAL SQ SCH (17:00)
[2022-04-25] MEDS ORDERED: HEPARIN 5000 UNIT/ML 1 ML VIAL ONE (18:49)
[2022-04-25] MEDS ORDERED: POTASSIUM CL SA 10 MEQ TAB PO ONE (19:30)
[2022-04-25] MEDS: ATORVASTATIN 40 MG TAB PO SCH (21:00)
[2022-04-25] MEDS: DOCUSATE NA 100 MG CAP PO SCH (21:00)
[2022-04-26] MEDS: HEPARIN 5000 UNIT/ML 1 ML VIAL SQ SCH ×3 (01:17→17:02)
[2022-04-26 04:58] LABS: Absolute Lymphocytes (CBC) 2.5 K/uL (0.7-4.9); Hematocrit 34.9 % (36.0-45.0); Lymphocytes % 23.8 % (15.3-44.8); MPV 9.3 fL (7.6-11.3)
[2022-04-26 04:59] LABS: MCV 63.4 fL (80-100)
[2022-04-26 05:02] VITALS: BMI 26.4
[2022-04-26 05:14] LABS: Magnesium 2.1 mg/dL (1.8-2.4); Phosphorus 2.8 mg/dL (2.5-4.9); Potassium 3.3 mmol/L (3.5-5.1)
[2022-04-26] MEDS: NA CHLORIDE 0.9% 1,000 ML IV SCH ×3 (06:39→20:48)
--- NOTE | 2022-04-26 08:16 | EKG ---
Test Date: 2022-04-25 Test Time: 08:14:18 [employer] Cable: MB MEASUREMENT RESULTS: Intervals: Rate: 85 NM: 160 QRSD: 122 QT: 442 QTc: 525 [place]: P: 90 NM: 160 QRS: -43 T: 32 INTERPRETIVE STATEMENTS: Normal sinus rhythm Left axis deviation Right bundle branch block Possible Inferior infarct, age undetermined Abnormal ECG No previous ECG available for comparison Electronically Signed On 04-26-22 08:12:31 CDT by Dave Talbot
[2022-04-26] MEDS: ASPIRIN EC 81 MG TAB PO SCH ×2 (09:00→09:24)
[2022-04-26] MEDS ORDERED: POTASSIUM CL SA 10 MEQ TAB PO ONE ×2 (09:00→21:00)
[2022-04-26] MEDS: DOCUSATE NA 100 MG CAP PO SCH ×3 (09:00→20:48)
[2022-04-26] MEDS: CEFTRIAXONE 1,000 MG in NA CHLORIDE 0.9% 50 ML IVPB SCH (09:23)
[2022-04-26] MEDS: ACETAMINOPHEN 500 MG TAB PO PRN ×2 (09:24→21:20)
[2022-04-26] MEDS ORDERED: NA CHLORIDE 0.9% 1,000 ML IV ONE (10:10)
--- NOTE | 2022-04-26 12:18 | RAD REPORT ---
EXAM DESCRIPTION: RAD - Abdomen 1 View (KUB) - 04/26/2022 11:57 am CLINICAL HISTORY: Abdomen pain FINDINGS: The bowel gas pattern is unremarkable. A moderate amount of stool is present within the colon. Calcifications right upper quadrant presumably ingested tablets
--- NOTE | 2022-04-26 19:58 | P.PN ---
Subjective Date of Service: 04/26/22 Chief Complaint: Fall Subjective: Improving She reports that her abdominal pain has significant improved. She had a large bowel movement overnight. She continues to report generalized myalgias. Review of Systems 10-point ROS is otherwise unremarkable General: Weakness Physical Examination - Vital Signs Temperature: 97.7 F Blood Pressure: 133/59 Pulse: 81 Respirations: 14 Pulse Ox (%): 98 - Physical Exam General: Alert, In no apparent distress, Oriented x3 HEENT: Atraumatic, PERRLA, Mucous membr. moist/pink, EOMI, Sclerae nonicteric Neck: Supple, JVD not distended Respiratory: Clear to auscultation bilaterally, Normal air movement Cardiovascular: No edema, Regular rate/rhythm, Normal S1 S2, No gallops, No rubs, No murmurs Gastrointestinal: Normal bowel sounds, Soft and benign, Non-distended, No tenderness, No rebound, No guarding Musculoskeletal: No clubbing Integumentary: No rashes Neurological: Normal speech, Cranial nerves 3-12 intact, Normal affect - Studies Laboratory Data (last 24 hrs) 04/26/22 15:56: Potassium 3.5 04/26/22 04:20: Sodium 138, Potassium 3.3 L, BUN 15, Creatinine 0.57, Glucose 99, Phosphorus 2.8, Magnesium 2.1 04/26/22 04:20: WBC 10.50 D, Hgb 11.1 L, Hct 34.9 L D, Plt Count 175 D Assessment And Plan - Plan # Fecal Impaction with Stercoral Colitis - On MiraLAX and docusate - Had large bowel movements - symptoms have resolved # Mild Rhabdomyolosis - CK stable, but not improving - Ordered 1 L Normal Saline - continue IV fluids - Trend CK # Hypertension # Hyperlipidemia - Continue home meds Potential discharge home tomorrow if CK and symptoms improve Parker Tijerina M.D. Discharge Plan: Home Plan to discharge in: 24 Hours Physician Review: Patient Assessed, Agree with Above Assessment and Plan
[2022-04-26] MEDS: ATORVASTATIN 40 MG TAB PO SCH (20:49)
[2022-04-27] MEDS: HEPARIN 5000 UNIT/ML 1 ML VIAL SQ SCH ×3 (02:03→17:34)
[2022-04-27] MEDS: NA CHLORIDE 0.9% 1,000 ML IV SCH ×4 (03:45→21:46)
[2022-04-27] MEDS: ACETAMINOPHEN 500 MG TAB PO PRN (04:52)
[2022-04-27 05:29] LABS: Magnesium 1.9 mg/dL (1.8-2.4); Potassium 3.4 mmol/L (3.5-5.1)
[2022-04-27 08:10] LABS: Albumin 2.4 g/dL (3.4-5.0); Potassium 3.2 mmol/L (3.5-5.1)
[2022-04-27] MEDS: ASPIRIN EC 81 MG TAB PO SCH (09:00)
[2022-04-27] MEDS ORDERED: KCL 20 MEQ/100 mL IVPB 20 MEQ/100 ML BAG IV SCH (09:00)
[2022-04-27] MEDS: DOCUSATE NA 100 MG CAP PO SCH ×2 (09:00→21:00)
[2022-04-27] MEDS ORDERED: POTASSIUM PHOS 20 MM in NA CHLORIDE 0.9% 500 ML IV ONE (09:00)
[2022-04-27] MEDS: CEFTRIAXONE 1,000 MG in NA CHLORIDE 0.9% 50 ML IVPB SCH (09:20)
[2022-04-27] MEDS ORDERED: POTASSIUM CL SA 10 MEQ TAB PO ONE (10:00)
[2022-04-27] MEDS: POTASS/SODIUM PHOSPHATE 1 PKT POWD.PACK PO SCH ×3 (10:14→13:08)
--- NOTE | 2022-04-27 15:49 | P.PN ---
Subjective Date of Service: 04/27/22 Chief Complaint: Fall Subjective: Improving No acute events overnight. She has not had any additional abdominal pain. Her weakness and malaise have also improved. She is working well with PT. Review of Systems 10-point ROS is otherwise unremarkable General: Weakness, Malaise Physical Examination - Vital Signs Temperature: 98.1 F Blood Pressure: 146/76 Pulse: 83 Respirations: 21 Pulse Ox (%): 99 - Studies Laboratory Data (last 24 hrs) 04/26/22 15:56: Potassium 3.5 Microbiology Data (last 24 hrs): 04/25/22 10:32 Clean Catch Urine [place]assar Count - Final No growth. 04/25/22 10:32 Clean Catch Urine - Final No growth. Assessment And Plan - Plan - Physical Exam General: Alert, In no apparent distress, Oriented x3 HEENT: Atraumatic, PERRLA, Mucous membr. moist/pink, EOMI, Sclerae nonicteric Neck: Supple, JVD not distended Respiratory: Clear to auscultation bilaterally, Normal air movement Cardiovascular: No edema, Regular rate/rhythm, Normal S1 S2, No gallops, No rubs, No murmurs Gastrointestinal: Normal bowel sounds, Soft and benign, Non-distended, No tenderness, No rebound, No guarding Musculoskeletal: No clubbing Integumentary: No rashes Neurological: Normal speech, Cranial nerves 3-12 intact, Normal affect # Multiple Electrolyte Derangements (Hypokalemia, Hypocalcemia, Hypophosphatemia) - Possible secondary to large bowel movement and passage of electrolytes - Replace as needed - If stable overnight, possible discharge tomorrow morning # Fecal Impaction with Stercoral Colitis (improved) - On MiraLAX and docusate - Had large bowel movements - symptoms have resolved # Mild Rhabdomyolosis (improved) - CK improving - Continue IV fluids - Trend CK # Hypertension # Hyperlipidemia - Continue home meds for HTN - Discontinue atorvastatin as this may result in rhabdomyolosis # Question of UTI on admission - Suspicion is low - Discontinue ceftriaxone after today's dose (recieved 3 days total) Parker Tijerina M.D. Discharge Plan: Home Plan to discharge in: 24 Hours
[2022-04-27] MEDS: CALCIUM GLUCONATE 1 GM IVPB 1 GM/50 ML BAG IV ONE (18:13)
[2022-04-27] MEDS: ATORVASTATIN 10 MG TAB PO SCH ×2 (22:00→22:07)
[2022-04-27] MEDS ORDERED: MELATONIN 5 MG TABLET PO PRN (22:01)
[2022-04-27] MEDS: AMLODIPINE 10 MG TAB PO SCH (22:07)
[2022-04-27] MEDS: lisinopriL 10 MG TAB PO SCH (22:08)
[2022-04-27 22:21] LABS: Albumin 2.5 g/dL (3.4-5.0); Bilirubin Total 0.5 mg/dL (0.2-1.0); Magnesium 1.8 mg/dL (1.8-2.4); Phosphorus 1.5 mg/dL (2.5-4.9); Potassium 3.5 mmol/L (3.5-5.1); Protein, Total 5.6 g/dL (6.4-8.2)
[2022-04-28] MEDS: NA CHLORIDE 0.9% 1,000 ML IV SCH (00:16)
[2022-04-28] MEDS: HEPARIN 5000 UNIT/ML 1 ML VIAL SQ SCH ×2 (00:40→08:01)
[2022-04-28 05:20] LABS: Albumin 2.4 g/dL (3.4-5.0); Bilirubin Total 0.5 mg/dL (0.2-1.0); CKMB Creatine Kinase MB 7.9 ng/mL (1.0-3.6); Magnesium 1.6 mg/dL (1.8-2.4); Phosphorus 1.3 mg/dL (2.5-4.9); Potassium 3.3 mmol/L (3.5-5.1); Protein, Total 5.3 g/dL (6.4-8.2)
[2022-04-28] MEDS ORDERED: MAGNESIUM SULFATE 1 gm IVPB 1 GM/100 ML BAG IV ONE (05:45)
[2022-04-28] MEDS ORDERED: POTASSIUM CL SA 10 MEQ TAB PO ONE (06:00)
[2022-04-28] MEDS: POTASS/SODIUM PHOSPHATE 1 PKT POWD.PACK PO SCH ×3 (06:00→07:19)
[2022-04-28] MEDS ORDERED: POTASSIUM PHOS 30 MM in NA CHLORIDE 0.9% 500 ML IV ONE (06:33)
[2022-04-28] MEDS ORDERED: CALCIUM GLUC 10% INJ 4.65 MEQ in NA CHLORIDE 0.9% 100 ML IV ONE (06:33)
[2022-04-28] MEDS ORDERED: Magnesium Sulfate 2gm IVPB 2 G/50 ML BAG IV ONE (06:33)
[2022-04-28] MEDS ORDERED: CALCIUM GLUCONATE 1 GM IVPB 1 GM/50 ML BAG IV ONE (07:00)
[2022-04-28] MEDS: ASPIRIN EC 81 MG TAB PO SCH ×2 (08:00→08:43)
[2022-04-28] MEDS: DOCUSATE NA 100 MG CAP PO SCH (08:02)
[2022-04-28 08:36] VITALS: O2SAT 95
[2022-04-28] MEDS: lisinopriL 10 MG TAB PO SCH (08:53)
[2022-04-28] MEDS: AMLODIPINE 10 MG TAB PO SCH (08:53)
[2022-04-28] MEDS: CALCIUM GLUCONATE 1 GM IVPB 1 GM/50 ML BAG IV ONE (09:08)
[2022-04-28 12:37] LABS: Magnesium 2.6 mg/dL (1.8-2.4); Phosphorus 3.1 mg/dL (2.5-4.9)
--- NOTE | 2022-04-28 13:30 | P.DS ---
Admission Date: 04/26/22 Discharge Date: 04/28/22 Disposition: ROUTINE DISCHARGE Discharge Condition: GOOD Reason for Admission: Fall Hospital Course: DIAGNOSES: # Multiple Electrolyte Derangements (Hypokalemia, Hypocalcemia, Hypophosphatemia) - resolved # Fecal Impaction with Stercoral Colitis (improved) # Mild Rhabdomyolosis (improved) # Hypertension # Hyperlipidemia # Question of UTI on admission HOSPITAL COURSE: Ms. Mariposa Devine is a pleasant 81 year old female with a past medical history significant for hypertension and hyperlipidemia who was admitted to the [facility] on 04/25/2022 for a fall and generalized weakness. She was admitted to the Medicine service for further evaluation. Upon evaluation, she was found to have a fecal impaction with stercoral colitis as well as mild rhabdomyolysis. She was treated with an aggressive bowel regimen including docusate and polyethylene glycol. This resulted in multiple large bowel movements and resolution of her symptoms. In regards to her rhabdomyolysis, this improved significantly with IV fluids. After having the large bowel movements, her stay was complicated by multiple electrolyte derang ements including hypokalemia, hypocalcemia, hypophosphatemia. She was observed for an additional night and her electrolytes were replaced accordingly, with improvement in their levels. Of note, the admitting provider was concerned for a urinary tract infection; however, she never complained of urinary symptoms to me. To be safe, she was treated with a 3-day course of ceftriaxone during her hospitalization. In regards to her weakness, she worked with Physical Therapy and was able to ambulate well with minimal to no assistance. On 04/28/2022, she was seen on morning rounds and deemed medically stable for discharge. She was discharged with instructions to schedule follow-up appointments with her PCP (Dr. Bettencourt) in 3-5 days and with gastroenterology (Dr. Jones) in 1-2 weeks. She was given the opportunity to ask questions and reported no further questions. Furthermore, all questions were answered to the best of my ability. Today, I personally spent 20 minutes on her case, of which greater than 50% of the time was spent in patient education, counseling, and coordination of care as described above. - Physical Exam General: Alert, In no apparent distress, Oriented x3 HEENT: Atraumatic, PERRLA, Mucous membr. moist/pink, EOMI, Sclerae nonicteric Neck: Supple, JVD not distended Respiratory: Clear to auscultation bilaterally, Normal air movement Cardiovascular: No edema, Regular rate/rhythm, Normal S1 S2, No gallops, No rubs, No murmurs Gastrointestinal: Normal bowel sounds, Soft and benign, Non-distended, No tenderness, No rebound, No guarding Musculoskeletal: No clubbing Integumentary: No rashes Neurological: Normal speech, Cranial nerves 3-12 intact, Normal affect Vital Signs/Physical Exam: Temp Pulse Resp BP Pulse Ox 97.0 F 99 H 15 123/76 99 04/28/22 04:00 04/28/22 04:00 04/28/22 04:00 04/28/22 08:53 04/27/22 16:16 Laboratory Data at Discharge: WBC 10.50 K/uL (4.3-10.9) D 04/26/22 04:20 Hgb 11.1 g/dL (12.0-15.0) L 04/26/22 04:20 Hct 34.9 % (36.0-45.0) L D 04/26/22 04:20 Plt Count 175 K/uL (152-406) D 04/26/22 04:20 PT 12.7 SECONDS (9.2-12.8) 04/25/22 08:11 INR 1.07 04/25/22 08:11 APTT 27.0 SECONDS (21.7-34.4) 04/25/22 08:11 Sodium 134 mmol/L (136-145) L 04/28/22 12:01 Potassium 4.0 mmol/L (3.5-5.1) 04/28/22 12:01 BUN 5 mg/dL (7-18) L 04/28/22 12:01 Creatinine 0.44 mg/dL (0.55-1.3) L 04/28/22 12:01 Glucose 110 mg/dL (74-106) H 04/28/22 12:01 Phosphorus 3.1 mg/dL (2.5-4.9) D 04/28/22 12:01 Magnesium 2.6 mg/dL (1.8-2.4) H D 04/28/22 12:01 Total Bilirubin 0.5 mg/dL (0.2-1.0) 04/28/22 03:45 AST 61 U/L (15-37) H 04/28/22 03:45 ALT 52 U/L (12-78) 04/28/22 03:45 Alkaline Phosphatase 52 U/L (45-117) 04/28/22 03:45 Home Medications: RX: Amlodipine [Norvasc*] 10 mg PO DAILY 04/26/22 RX: Lisinopril [Zestril] 10 mg PO DAILY 04/26/22 RX: Lovastatin 10 mg PO BEDTIME 04/26/22 RX: Docusate [Colace Cap*] 100 mg PO BID cap 04/28/22 Physician Discharge Instructions: 1. Please schedule a follow-up appointment with your PCP (Dr. Bettencourt) in 3-5 days 2. Please schedule a follow-up appointment with Gastroenterology (Dr. Jones) in 5-7 days PROBLEM: (list out Acute Problems for the Current visit) GOAL: Clear understanding of disease process INSTRUCTIONS: Please schedule a follow-up appointment with your PCP (Dr. Bettencourt) in 3-5 days Diet: Regular Activity: as tolerated DME DME: Date Ordered: Name of Company: [employer] Services Needed: Home Health Name of Company: Date or Referral: IMMUNIZATION Influenza Vaccine Indicated: Influenza Vaccine Given: Date Given: Pneumonia Vaccine Indicated: No Pneumonia Vaccine Given: Date Given: Diet: Regular Activity: Ad gus Followup: Oswaldo Bettencourt MD [Primary Care Provider] - Sunil Jones MD [ACTIVE - CAN ADMIT] - Time spent managing pt's care (in minutes): 20
[2022-04-28 14:05] VITALS: BP 136/65; TEMP 98.2
== END 2022-04-28 13:50 | disposition home or self-care (01) | DRG 389 ==
LOC: ER 07:57 → ERHOLD 10:41 → 3RD-ICU 20:56 → OBSVTOIN 04-26 16:13
PROVIDERS: ADMIT Internal Medicine; ATTEND Internal Medicine
DX: K56.41 Fecal impaction (principal); M62.82 Rhabdomyolysis; N39.0 Urinary tract infection, site not specified; E87.6 Hypokalemia; E83.51 Hypocalcemia; E83.39 Other disorders of phosphorus metabolism; K52.89 Other specified noninfective gastroenteritis and colitis; I10 Essential (primary) hypertension; E78.5 Hyperlipidemia, unspecified; R53.1 Weakness; Z88.0 Allergy status to penicillin; Z20.822 Contact with and (suspected) exposure to COVID-19
CPT/HCPCS: 36415; 51702; 70450; 71250; 72125; 74018; 80048; 80053; 81003; 81015; 82040; 82330; 82550; 82553; 83735; 84100; 84132; 84439; 84443; 85025; 85610; 85730; 87040; 87086; 87088; 87811; 93005; 96361; 96365; 96366; 96375; 97116; 97161; 97530; 99285; G0378; J0610; J1644; J2405; J3475; J3480; J7030; J7040

== ENCOUNTER 2022-11-10 02:12 | Emergency (ER) | payer OTHER ==
--- OUTSIDE RECORDS SUMMARY | 2022-11-10 02:15 | XMS REPORT | Continuity of Care Document ---
:1940 Author Organization [facility] t Address [address] [place] [address] Care Team Providers Name Role Phone Oswaldo Bettencourt MD. Primary Care Physician Oswaldo Bettencourt Attending Clinician Oswaldo Bettencourt Attending Clinician Payers Payer Name Policy Type Policy Number Effective Date Expiration Date S katarzyna [employer] MEDICARE [id number] 2018 2024 O 00:00:00 00:00:00 Problems Condition [...] UNSPECIFIE 12-20 09:36:00 l D D 00:01: Neol HYDRONEPHR HYDRONEPHR 00 OSIS OSIS Active 12/20/2017 [...] Rash 2018-08 Method i in ty to 009 st adverse 00:00: Hospita reaction 00 l s to drug penicill penicill Active Memori a in in l Noel contrast contrast Active Moderate Ruy johny media media l (iodine- (iodine- Tim n based) based) Social History Social Habit Start Date Stop Date Quantity Comments Source History [facility] History SD[facility] Drinks Tobacco use and 2019-06-05 2019-06-05 Smokeless tobacco Me thodist exposure 00:00:00 00:00:00 non-user Hospital Alcohol intake 2019-06-05 2019-06-05 Lifetime [facility] 00:00:00 00:00:00 non-drinker Hospital (finding) History SDOH 2019-06-05 2019-06-05 1 [facility] Frequency 00:00:00 00:00:00 Hospita l Sex Ass[birth year] At [birth year] [facility] 00:00:00 00:00:00 Hospital Smoking Status Start Date Stop Date Source Tobacco smoking consumption unknown [facility] Never smoked tobacco [facility] Medications Ordered Filled Start Stop Current Ordering Indication Dosage Frequency Signature Comments Components Source Medication Medication Date Date Medication? Clinician (SIG) Name Name lisinopril- Yes TAKE 2 Meth collette hydrochloro 9-[address] thiazide 00:00: MOUTH Hospita (PRINZIDE) 00 DAILY FOR l 20-12.5 mg HIGH BLOOD per tablet PRESSURE lisinopril- Yes TAKE 2 Meth collette hydrochloro 9-[address] thiazide 00:00: MOUTH Hospita (PRINZIDE) 00 DAILY FOR l 20-12.5 mg HIGH BLOOD per tablet PRESSURE amLODIPine Yes 10mg QD Take 10 mg M ethodi (NORVASC) 8-[address] 10 mg 00:00: daily. Hospita tablet 00 l amLODIPine Yes 10mg QD Take 10 mg M ethodi (NORVASC) 8-[address] 10 mg 00:00: daily. Hospita tablet 00 l Procedures Procedure Date / Time Performed Performing Clinician Sourc e CHG DEXA,BONE DENSITY, 1 + SITE, 2021-05-27 17:36:12 Vlad Bettencourt [facility] AXIAL SKELETON CHG DEXA,BONE DENSITY, 1 + SITE, 2021-05-27 17:36:12 Aryan Bettencourtn claudia Lilly [facility] AXIAL SKELETON Encounters Start End Encounter Admission Attending Care Care Encounter Source Date/Time Date/Time Type Type Clinicians Facility Department ID 2021-12-21 Outpatient [facility] ER [id number] [place] 07:38:02 [id number] Health 2021-05-27 2021-05-27 EXT [facility] OP Sg, EXT MSRDP [id number] [place] 00:00:00 00:00:00 Oswaldo D LOCATION [id number] H ealth [id number] 2021-05-27 2021-05-27 EXT [facility] OP Sg, EXT MSRDP [id number] [place] 00:00:00 00:00:00 Oswaldo D LOCATION [id number] H ealth [id number] 2018-01-10 2018-01-11 Outpt Diag nullFlavo [facility] [id number] Memoria 15:41:00 04:59:00 Services r Outpatient 04 l Imaging - Tim n [facility] 2018-01-10 2018-01-11 Outpt Diag nullFlavo [facility] [id number] Memoria 15:41:00 04:59:00 Services r Outpatient 04 l Imaging - Tim n [facility] 2018-01-10 2018-01-11 Outpt Diag nullFlavo [facility] [id number] Memoria 15:41:00 04:59:00 Services r Outpatient 04 l Imaging - Tim barby [facility] 2018-01-10 2018-01-10 Outpatient Sg [id number] 10:41:00 23:59:00 Oswaldo [place] [facility] 2018-01-10 2018-01-10 Outpatient Bettencourt, 35 35 [id number] 10:41:00 23:59:00 [facility]do [facility] 2017-12-26 2017-12-27 Outpt Diag nullFlavo [facility] [id number] Memoria 14:27:00 04:59:00 Services r Outpatient 03 l Imaging - Tim n [facility] 2017-12-26 2017-12-27 Outpt Diag nullFlavo [facility] [id number] Memoria 14:27:00 04:59:00 Services r Outpatient 03 l Imaging James dior [facility] 2017-12-26 2017-12-27 Outpt Diag nullFlavo [facility] [id number] Memoria 14:27:00 04:59:00 Services r Outpatient 03 l Moe dior [facility] 2017-12-26 2017-12-26 Outpatient Sg, [id number] 09:27:00 23:59:00 Oswaldo Marcela [facility] 2017-12-26 2017-12-26 Outpatient Sg, 35 [id number] 09:27:00 23:59:00 Oswaldo Marcela [place] 2017-01-24 2017-01-25 Outpt Diag nullFlavo [facility] [id number] Memoria 19:23:00 04:59:00 Services r Outpatient 00 l Imaging James dior [facility] 2017-01-24 2017-01-25 Outpt Diag nullFlavo [facility] [id number] Memoria 19:23:00 04:59:00 Services r Outpatient 00 l Imaging James dior [facility] 2017-01-24 2017-01-25 Outpt Diag nullFlavo [facility] [id number] Memoria 19:23:00 04:59:00 Services r Outpatient 00 l Imaging James dior [facility] 2017-01-24 2017-01-25 Outpt Diag nullFlavo [facility] [id number] Memoria 15:52:00 04:59:00 Services r Outpatient 01 l Imaging James dior [facility] 2017-01-24 2017-01-25 Outpt Diag nullFlavo [facility] [id number] Memoria 15:52:00 04:59:00 Services r Outpatient 01 l Imaging James dior [facility] 2017-01-24 2017-01-25 Outpt Diag nullFlavo [facility] [id number] Memoria 15:52:00 04:59:00 Services r Outpatient 01 l Moe dior [facility] 2017-01-24 2017-01-24 Outpatient Sg, [id number] 14:23:00 23:59:00 Oswaldo 00 [facility] 2017-01-24 2017-01-24 Outpatient Sg, MH35 [id number] 14:23:00 23:59:00 Oswaldo 00 [facility] 2017-01-24 2017-01-24 Outpatient Sg, [id number] 10:52:00 23:59:00 Oswaldo [id number] Da-Yeh [id number] 2017-01-24 2017-01-24 Outpatient Sg, [id number]. [id number] 10:52:00 23:59:00 Oswaldo [id number] Da-Yeh [id number] 5.90 Results This patient has no known results.
[2022-11-10] MEDS ORDERED: LIDOCAINE 1% W/EPI 1:100,000 30 ML VIAL ONE (02:30)
--- NOTE | 2022-11-10 02:51 | ER ---
Nurse's Notes [facility] Name: Mariposa Devine Age: 81 yrs Sex: Female : 1940 Arrival Date: 11/10/2022 Time: 02:13 Bed 8 Private MD: Diagnosis: Postoperative incision with bleeding, postoperative complication, complication after dermatologic procedure. Complication after excision of skin mole Presentation: 11/10 02:19 Chief complaint: EMS states: pt had a blister on her leg lanced 11/09 and now site is as6 bleeding. Coronavirus screen: At this time, the client does not indicate any symptoms associated with coronavirus-19. Ebola Screen: No symptoms or risks identified at this time. Initial Sepsis Screen: Does the patient meet any 2 criteria? No. Patient's initial sepsis screen is negative. Does the patient have a suspected source of infection? No. Patient's initial sepsis screen is negative. Risk Assessment: Do you want to hurt yourself or someone else? Patient reports no desire to harm self or others. Onset of symptoms was November 09, 2022. 02:19 Acuity: ARIELA 4 as6 02:19 Method Of Arrival: EMS: [facility] as6 Historical: - Allergies: 02:18 PENICILLINS; as6 02:18 Vancomycin; as6 - Home Meds: 02:18 lovastatin 10 mg Oral tab [Active]; lisinopril 10 mg oral tablet 1 tab daily [Active]; as6 - PMHx: 02:18 Hypercholesterolemia; Hypertensive disorder; as6 - PSHx: 02:18 brain aneurysm; as6 - Immunization history:: Client reports receiving the 2nd dose of the Covid vaccine, moderna. - Social history:: Smoking status: Patient/guardian denies using tobacco, but has a distant history of tobacco abuse. - Family history:: not pertinent. Assessment: 02:20 General: Appears in no apparent distress. Behavior is calm, cooperative. Pain: Denies as6 pain. Neuro: Level of Consciousness is awake, alert, obeys commands, Oriented to person, place, time, situation. Cardiovascular: Capillary refill < 3 seconds Patient's skin is warm and dry. Respiratory: Respiratory effort is even, unlabored, Respiratory pattern is regular, symmetrical. Derm: Wound noted medial aspect of right knee Wound is lanced blister with single suture, site is bleeding minimally. Vital Signs: 02:19 BP 153 / 84; Pulse 71; Resp 18 S; Temp 97.8(O); Pulse Ox 99% on R/A; Weight 63.5 kg as6 (R); Height 5 ft. 1 in. (R); Pain 0/10; 02:19 Body Mass Index 26.09 (63.50 kg, 156 cm) as6 02:19 Pain Scale: Adult as6 ED Course: 02:13 Patient arrived in ED. 2 02:17 Anthony Chan, RN is Primary Nurse. as6 02:17 Arm band placed on. as6 02:17 Bed in low position. Call light in reach. Side rails up X2. as6 02:19 Hari Phillips MD is Attending Physician. sp4 02:23 Triage completed. as6 Administered Medications: 02:30 Drug: Lidocaine-Epinephrine Infiltration -1%: (1:100,000) 20 ml {Note: administered by as6 provider .} Volume: 20 ml; Route: Infiltration; 02:43 Follow up: Response: No adverse reaction as6 Outcome: 02:51 Discharge ordered by . sp4 Signatures: Rose Nazario2 Anthony Chan, RN RN as6 Hari Phillips MD MD sp4
--- NOTE | 2022-11-10 02:51 | EDPHYS ---
Physician Documentation [facility] Name: Mariposa Devine Age: 81 yrs Sex: Female : 1940 Arrival Date: 11/10/2022 Time: 02:13 Bed 8 Private MD: ED Physician Hari Phillips HPI: 11/10 02:23 This 81 yrs old Female presents to ER via Unassigned with complaints of right sp4 leg incision bleeding . 02:42 81-year-old female presents with EMS for bleeding from her right leg. Patient states sp4 that her pharmacy clinical coordinator to cough a mole from the right anterior thigh on 11/09/2022 in the office and put a stitch into an incision. Since then patient states she has been bleeding in small amounts from the incision describing bleeding as a drop-by drop slow oozing . Patient would like bleeding control. Historical: - Allergies: 02:18 PENICILLINS; as6 02:18 Vancomycin; as6 - Home Meds: 02:18 lovastatin 10 mg Oral tab [Active]; lisinopril 10 mg oral tablet 1 tab daily [Active]; as6 - PMHx: 02:18 Hypercholesterolemia; Hypertensive disorder; as6 - PSHx: 02:18 brain aneurysm; as6 - Immunization history:: Client reports receiving the 2nd dose of the Covid vaccine, moderna. - Social history:: Smoking status: Patient/guardian denies using tobacco, but has a distant history of tobacco abuse. - Family history:: not pertinent. ROS: 02:42 Constitutional: Negative for fever, chills, and weight loss, Eyes: Negative for injury, sp4 pain, redness, and discharge, ENT: Negative for injury, pain, and discharge, Neck: Negative for injury, pain, and swelling, Cardiovascular: Negative for chest pain, palpitations, and edema, Respiratory: Negative for shortness of breath, cough, wheezing, and pleuritic chest pain, Abdomen/GI: Negative for abdominal pain, nausea, vomiting, diarrhea, and constipation, Back: Negative for injury and pain, : Negative for injury, bleeding, discharge, and swelling, MS/Extremity: Negative for injury and deformity, right anterior thigh small postoperative incision with slow bleed Skin: Negative for injury, rash, and discoloration, right thigh postoperative bleeding incision Neuro: Negative for headache, weakness, numbness, tingling, and seizure, Psych: Negative for depression, anxiety, Allergy/Immunology: Negative for hives, rash, and allergies, Endocrine: Negative for neck swelling, polydipsia, polyuria, polyphagia, and weight changes Hematologic/Lymphatic: Negative for swollen nodes, abnormal bleeding, and unusual bruising Exam: 02:42 Constitutional: This is a well developed, well nourished patient who is awake, alert, sp4 and in no acute distress frail and elderly female. Head/Face: Normocephalic, atraumatic. Eyes: Pupils equal round and reactive to light, extra-ocular motions intact. Lids and lashes normal. Conjunctiva and sclera are not injected. Cornea within normal limits. Periorbital areas with no swelling, redness, or edema. ENT: Nares patent. No nasal discharge, no septal abnormalities noted. Tympanic membranes are normal and external auditory canals are clear. Oropharynx with no redness, swelling, or masses, exudates, or evidence of obstruction, uvula midline. Mucous membranes moist. Neck: Trachea midline, no thyromegaly or masses palpated, and no cervical lymphadenopathy. Supple, full range of motion without nuchal rigidity, or vertebral point tenderness. No Meningismus. Chest/axilla: Normal chest wall appearance and motion. Nontender with no deformity. No lesions are appreciated. Cardiovascular: Regular rate and rhythm with a normal S1 and S2. No gallops, murmurs, or rubs. Normal PMI, no JVD. No pulse deficits. Respiratory: Lungs have equal breath sounds bilaterally, clear to auscultation and percussion. No rales, rhonchi or wheezes noted. No increased work of breathing, no retractions or nasal flaring. Abdomen/GI: Soft, non-tender, with normal bowel sounds. No distension or tympany. No guarding or rebound. No evidence of tenderness throughout. Back: No spinal tenderness. No costovertebral tenderness. Skin: Warm, dry with normal turgor. Normal color with no rashes, no lesions, and no evidence of cellulitis. There is right lower anterior thigh small postoperative incision about 1 cm long with a single suture and a slow bleeding from around the suture. No hematoma or discoloration, there are 3 blistering lesions close to the incision. MS/ Extremity: Pulses equal, no cyanosis. Neurovascular intact. Full, normal range of motion. Small bleeding postoperative incision in the right anterior lower thigh Neuro: Awake and alert, GCS 15, oriented to person, place, time, and situation. Cranial nerves II-XII grossly intact. Motor strength 5/5 in all extremities. Sensory grossly intact. Psych: Awake, alert, with orientation to person, place and time. Behavior, mood, and affect are within normal limits. Vital Signs: 02:19 BP 153 / 84; Pulse 71; Resp 18 S; Temp 97.8(O); Pulse Ox 99% on R/A; Weight 63.5 kg as6 (R); Height 5 ft. 1 in. (R); Pain 0/10; 02:19 Body Mass Index 26.09 (63.50 kg, 156 cm) as6 02:19 Pain Scale: Adult as6 Laceration: 02:42 Wound Repair of 1cm ( 0.4in ) subcutaneous laceration to right quadriceps, right lower sp4 anterior thigh small postoperative incision 1 cm long with active slow bleeding. Distal neuro/vascular/tendon intact. Anesthesia: Local anesthetic administered with 5 mls of 1% lidocaine w/ Epi. Wound prep: Simple cleansing with hibiclenz by sd. Skin closed with 2 4-0 Silk using interrupted sutures and sterile technique. Dressed with 4x4's, pressure dressing. Patient tolerated well. MDM: 02:41 Patient medically screened. sp4 02:48 Differential Diagnosis Bleeding postoperative incision, bleeding or laceration, sp4 postoperative complication. Data reviewed: vital signs, nurses notes, EMS record. ED course: Single suture was removed from the bleeding incision, and 2 sutures were applied in a simple interrupted fashion which caused bleeding to stop, light pressure dressing was applied, patient advised to keep dressing on for 24 hours and see her pharmacy clinical coordinator for follow-up in the office at 1 to 2 days. 11/10 02:24 Order name: Setup Suture Tray; Complete Time: : sp4 11/10 02:24 Order name: Gloves, Sterile; Complete Time: 02:27 sp4 11/10 02:24 Order name: Dressing - Wound; Complete Time: 02:43 sp4 Administered Medications: 02:30 Drug: Lidocaine-Epinephrine Infiltration -1%: (1:100,000) 20 ml {Note: administered by as6 provider .} Volume: 20 ml; Route: Infiltration; 02:43 Follow up: Response: No adverse reaction as6 Disposition Summary: 11/10/22 02:51 Discharge Ordered Location: Home sp4 Problem: new sp4 Symptoms: are resolved sp4 Condition: Stable sp4 Diagnosis - Postoperative incision with bleeding, postoperative complication, complication sp4 after dermatologic procedure. Complication after excision of skin mole Followup: sp4 - With: Private Physician - When: 1 - 2 days - Reason: Re-evaluation by your physician Forms: - Medication Reconciliation Form sp4 - Thank You Letter sp4 - Antibiotic Education sp4 - Prescription Opioid Use sp4 Signatures: Anthony Chan RN RN as6 Hari Phillips MD MD sp4
[2022-11-10 11:21] VITALS: TEMP 97.8; O2SAT 99
[2022-11-10 11:23] VITALS: BP 160/81
== END 2022-11-10 03:10 | disposition home or self-care (01) ==
LOC: ER 02:12
PROC: 0HQKXZZ Repair Right Lower Leg Skin, External Approach (ICD-10-PCS; principal; 2022-11-10)
DX: L76.21 Postprocedural hemorrhage of skin and subcutaneous tissue following a dermatologic procedure (principal); Z88.0 Allergy status to penicillin; Z88.3 Allergy status to other anti-infective agents
CPT/HCPCS: 99283